=== PATIENT | female | born 1990 | race Caucasian/White ===

== ENCOUNTER 2016-05-28 17:39 | Emergency (ER) | payer BC, OTHER ==
[~2016-05-28] VITALS: Ht 167.6 cm; Wt 83.5 kg
[2016-05-28] MEDS ORDERED: HYDR-3713 (17:53)
[2016-05-28] MEDS ORDERED: LYRI75CA (17:53)
[2016-05-28] MEDS ORDERED: ALPR0.25 (17:53)
[2016-05-28] MEDS ORDERED: [UNRECOGNIZED DRUG - OTHER] PO (17:53)
[2016-05-28] MEDS ORDERED: CYCL10TA (17:53)
[2016-05-28] MEDS ORDERED: ONDA4TAB6 (17:53)
[2016-05-28] MEDS ORDERED: METH4PACK (17:53)
[2016-05-28] MEDS ORDERED: FLUO40CA (17:53)
[2016-05-28] MEDS ORDERED: NS 500 ML IV ONE (19:15)
[2016-05-28] MEDS ORDERED: ISOVUE-370 76% 100ML VIAL (Q9967) As Ordered ONE (19:30)
--- NOTE | 2016-05-28 19:50 | REPUSA ---
CT angiogram of the chest Clinical statement: Chest pain and shortness of breath. Technique: Multiple axial CT images were obtained from the thoracic inlet through the upper abdomen a fter a bolus administration of nonionic intravenous contrast. Coronal and sagittal reconstructions we re also obtained. No comparison is available. Findings: The pulmonary arteries are well-opacified with contrast, with no intraluminal filling defec ts to suggest embolism. The thoracic aorta is unremarkable. Thyroid gland is within normal limits. Th ere is no thoracic lymphadenopathy. There are no pericardial or pleural effusions. The lungs are araceli r. Limited imaging of the upper abdomen is unremarkable. There are no suspicious osseous lesions. Impression: Unremarkable CT examination of the chest. No evidence of pulmonary embolism.
[2016-05-28] MEDS ORDERED: MECLIZINE 25 MG TABLET PO ONE (20:00)
[2016-05-28] MEDS ORDERED: MECL-68 PO (20:03)
[2016-05-28 20:23] VITALS: BP 117/80
== END 2016-05-28 20:26 | disposition home or self-care (01) ==
LOC: M ED 18:53
DX: R55 Syncope and collapse (principal); R42 Dizziness and giddiness; R11.0 Nausea; Z88.0 Allergy status to penicillin; Z88.2 Allergy status to sulfonamides; Z79.899 Other long term (current) drug therapy; Z88.8 Allergy status to other drugs, medicaments and biological substances; R51 Headache; J45.909 Unspecified asthma, uncomplicated; Z87.440 Personal history of urinary (tract) infections; F41.9 Anxiety disorder, unspecified; F32.9 Major depressive disorder, single episode, unspecified
CPT/HCPCS: 71275; 96360; 99282; Q9967

== ENCOUNTER → 2016-05-28 | Outpatient (CLI) | payer BC, OTHER ==
[~2016-05-28] MED LIST: ALPR0.25; CYCL10TA; FLUO40CA; HYDR-3713; LYRI75CA; MECL-68 PO; METH4PACK; ONDA4TAB6; [UNRECOGNIZED DRUG - OTHER] PO
--- NOTE | 2016-05-28 16:24 | REP ---
CT Head without contrast HISTORY: Syncope COMPARISON: 12/17/2014 There is no intraparenchymal hemorrhage, acute infarct, mass or midline shift. The ventricular system is normal in appearance. There is no extra cerebral collection. There is no fracture. The visualized sinuses are clear. IMPRESSION: There is no intracranial lesion. Signed by Brian Vallejo MD 05/28/2016 04:16 P
--- NOTE | 2016-05-29 07:43 | REP ---
Chest x-ray: Two views. History: Syncope . Comparison study: January 18, 2007 . Findings: The lungs are well inflated and free of infiltrate. The pleural angles are sharp. The heart size is normal. Pulmonary vasculature is not increased. No significant bony abnormality is seen. Impression: Negative chest x-ray. Signed by Jhonathan Arana MD 05/28/2016 04:03 P
== END ==
LOC: M RAD 15:50
PROVIDERS: ATTEND Physician Assistant Medical
DX: R55 Syncope and collapse (principal)

== ENCOUNTER → 2016-05-28 | Outpatient (REF) | payer BC, OTHER ==
[2016-05-28 15:31] LABS: BASO % 0.3 % (0.0-1.0); EOS # 0.2 K/mm3 (0.0-0.50); EOS % 2.6 % (0.0-3.0); LARGE UNSTAINED CELL # 0.1 K/mm3 (0.0-0.4); LYMPH # 3.1 K/mm3 (1.5-6.5); LYMPH % 45.9 % (24.0-44.0); MEAN CORPUSCULAR HEMOGLOBIN 30.4 pg (27.0-33.0); MEAN CORPUSCULAR HGB CONC 33.2 g/dl (32.0-36.5); MEAN CORPUSCULAR VOLUME 91.5 fl (80.0-96.0); MONO # 0.2 K/mm3 (0.0-0.8); MONO % 3.7 % (0.0-5.0); NEUTROPHILS # 2.9 K/mm3 (1.8-7.7); NEUTROPHILS % 45.4 % (36.0-66.0); PLATELET COUNT, AUTOMATED 303 k/mm3 (150-450); RED CELL DISTRIBUTION WIDTH 12.6 % (11.5-14.5); WHITE BLOOD COUNT 6.4 K/mm3 (4.0-10.0)
[2016-05-28 15:54] LABS: ALBUMIN 3.6 GM/DL (3.2-5.2); ALBUMIN/GLOBULIN RATIO 1.09 (1.00-1.93); ALKALINE PHOSPHATASE 90 U/L (45-117); ALT/SGPT 27 U/L (12-78); ANION GAP 8 MEQ/L (8-16); AST/SGOT 15 U/L (15-37); BILIRUBIN,TOTAL 0.6 MG/DL (0.2-1.0); BLOOD UREA NITROGEN 9 MG/DL (7-18); CALCIUM LEVEL 8.5 MG/DL (8.5-10.1); CARBON DIOXIDE LEVEL 27 MEQ/L (21-32); CHLORIDE LEVEL 104 MEQ/L (98-107); FREE T4 0.92 NG/DL (0.76-1.46); GLOMERULAR FILTRATION RATE > 60.0 (>60); GLUCOSE, FASTING 82 MG/DL (70-105); POTASSIUM SERUM 3.7 MEQ/L (3.5-5.1); SODIUM LEVEL 139 MEQ/L (136-145); TOTAL PROTEIN 6.9 GM/DL (6.4-8.2)
== END ==
LOC: M SFHCPLAZ 15:10
PROVIDERS: ATTEND Physician Assistant Medical
DX: R55 Syncope and collapse (principal)

== ENCOUNTER → 2016-06-05 | Outpatient (CLI) | payer BC, OTHER ==
--- NOTE | 2016-06-05 17:13 | REP ---
MRA CAROTIDS WITHOUT CONTRAST: HISTORY: Syncope. Unenhanced 2D time of flight MR angiography was performed at the level of the carotid bifurcations. The distal common carotid arteries and origins of the external and internal carotid arteries are normal. The vertebral arteries are equal in size and patent. There are no atherosclerotic lesions. IMPRESSION:Normal MRA carotids. Signed by Brian Vallejo MD 06/05/2016 05:21 P
--- NOTE | 2016-06-05 18:07 | REP ---
MRI BRAIN WITHOUT FOLLOWED BY WITH CONTRAST: COMPARISON: 12/03/2010 A single punctate focus of increased signal intensity on T2 weighted images is present in the subcortical white matter of the left frontal lobe. There is no intraparenchymal hemorrhage, infarct mass or midline shift. The ventricular system is normal in appearance. There is no extracerebral collection. The sinuses are clear. IMPRESSION: There is a single punctate focus of increased signal intensity in the subcortical white matter of the left frontal lobe. This is a nonspecific finding. Signed by Brian Vallejo MD 06/05/2016 06:08 P
== END ==
LOC: M RAD 15:46
PROVIDERS: ATTEND Physician Assistant Medical
DX: R55 Syncope and collapse (principal)
CPT/HCPCS: 70547; 70553; A9576

== ENCOUNTER → 2016-06-30 | Outpatient (REF) | payer OTHER ==
[2016-06-30 15:32] LABS: MEAN CORPUSCULAR HEMOGLOBIN 31.7 pg (27.0-33.0); MEAN CORPUSCULAR HGB CONC 33.9 g/dl (32.0-36.5); MEAN CORPUSCULAR VOLUME 93.6 fl (80.0-96.0); RED CELL DISTRIBUTION WIDTH 12.8 % (11.5-14.5)
[2016-06-30 15:41] LABS: ALBUMIN 3.4 GM/DL (3.2-5.2); ALKALINE PHOSPHATASE 90 U/L (45-117); ALT/SGPT 26 U/L (12-78); ANION GAP 9 MEQ/L (8-16); AST/SGOT 11 U/L (15-37); BILIRUBIN,TOTAL 0.7 MG/DL (0.2-1.0); BLOOD UREA NITROGEN 11 MG/DL (7-18); CALCIUM LEVEL 8.2 MG/DL (8.5-10.1); CARBON DIOXIDE LEVEL 21 MEQ/L (21-32); CHLORIDE LEVEL 112 MEQ/L (98-107); CHOLESTEROL LEVEL 274 MG/DL (<200); CREATININE FOR GFR 1.14 MG/DL (0.55-1.02); FERRITIN 296 NG/ML (8-252); GLOMERULAR FILTRATION RATE > 60.0 (>60); GLUCOSE, FASTING 87 MG/DL (70-105); PERCENT SATURATION 29.7 % (13.2-37.4); POTASSIUM SERUM 3.9 MEQ/L (3.5-5.1); SODIUM LEVEL 142 MEQ/L (136-145); TOTAL IRON BINDING CAPACITY 434 UG/DL (250-450); TOTAL PROTEIN 6.8 GM/DL (6.4-8.2); TRIGLYCERIDES LEVEL 142 MG/DL (<150); VITAMIN B12 LEVEL 326 PG/ML (247-911)
== END ==
LOC: M SFHCLACO 08:28
PROVIDERS: ATTEND Physician Assistant
DX: Z00.00 Encounter for general adult medical examination without abnormal findings (principal); D50.9 Iron deficiency anemia, unspecified; G89.4 Chronic pain syndrome; M79.7 Fibromyalgia; F34.1 Dysthymic disorder

== ENCOUNTER → 2016-10-13 | Outpatient (REF) | payer OTHER ==
[2016-10-13 15:36] LABS: ALBUMIN 3.4 GM/DL (3.2-5.2); ALBUMIN/GLOBULIN RATIO 0.97 (1.00-1.93); ALKALINE PHOSPHATASE 82 U/L (45-117); ALT/SGPT 33 U/L (12-78); ANION GAP 9 MEQ/L (8-16); AST/SGOT 18 U/L (15-37); BILIRUBIN,TOTAL 0.6 MG/DL (0.2-1.0); BLOOD UREA NITROGEN 14 MG/DL (7-18); CARBON DIOXIDE LEVEL 21 MEQ/L (21-32); CHLORIDE LEVEL 112 MEQ/L (98-107); CHOLESTEROL LEVEL 281 MG/DL (<200); CREATININE FOR GFR 1.05 MG/DL (0.55-1.02); GLOMERULAR FILTRATION RATE > 60.0 (>60); GLUCOSE, FASTING 73 MG/DL (70-105); POTASSIUM SERUM 4.2 MEQ/L (3.5-5.1); SODIUM LEVEL 142 MEQ/L (136-145); TOTAL PROTEIN 6.9 GM/DL (6.4-8.2); TRIGLYCERIDES LEVEL 195 MG/DL (<150)
== END ==
LOC: M SFHCLACO 08:09
PROVIDERS: ATTEND Physician Assistant
DX: E78.2 Mixed hyperlipidemia (principal); M79.7 Fibromyalgia; E55.9 Vitamin D deficiency, unspecified

== ENCOUNTER → 2016-12-17 | Outpatient (CLI) | payer OTHER ==
--- NOTE | 2016-12-17 08:37 | REP ---
Abdominal right upper quadrant ultrasound: There is no cholelithiasis, gallbladder wall thickening or pericholecystic fluid. There is no intrahepatic or extrahepatic biliary duct dilatation. The common duct measures 3.0 mm in diameter. Within the liver. There is an echogenic nodule near the gallbladder measuring 16 x 18 x 13 mm, possibly an hemangioma. I would recommend MRI follow-up for confirmation. There was no liver lesion in this location on the prior CT scans of 2011 or 10/13/2012. The visualized portion of the pancreatic head is unremarkable. The body and tail are obscured by bowel gas. There is no right renal calculus, mass, cyst or hydronephrosis. Right kidney is normal size measuring 11.0 cm craniocaudad length. There is no right upper quadrant abdominal ascites. Impression: There is an echogenic hepatic mass adjacent to the gallbladder as described, not present on comparison CT scans. This may be an hemangioma, however, MRI follow-up is recommended for confirmation. The Signed by Karthik Moe MD 12/17/2016 08:28 A
== END ==
LOC: M RAD 07:39
PROVIDERS: ATTEND Physician Assistant
DX: K76.9 Liver disease, unspecified (principal); R10.11 Right upper quadrant pain

== ENCOUNTER → 2017-01-11 | Outpatient (CLI) | payer OTHER ==
[~2017-01-11] MED LIST changes: +PROHANCE 279.3MG/ML 15ML VIAL (A9576) As Ordered ONE
--- NOTE | 2017-01-12 05:50 | REP ---
MRI liver without and with contrast: 01/11/2017. Clinical history: Right upper quadrant pain. Suspected hemangioma of liver based on gallbladder ultrasound 12/17/2016. Also repeat CT abdomen 10/13/2012. Technique: Coronal T2 axial, T2 fat suppressed, T2 in and out-phase images and gradient echo precontrast axial with dynamic scanning after infusion of 14.5 ml of ProHance via IV. Delayed images out to 6 minutes and coronal fat suppressed gradient-echo sequence also provided. Review of previous CTs, no liver lesion with contrast or noncontrast images from 2011 and 2012 respectively. The T2 coronal images and axial T2 and fat suppressed T2 sequences show no discrete mass in the region of the hyperechoic focus on ultrasound. Course of the left portal vein is an unusual anterior course and splitting major segments and the focus is near that portal vein on ultrasound. I suspect may reflect some focal fat fissure near the portal vein as I cannot see a nodule on precontrast T2 images, the in and out of phase images showing only fat in the fissure signal drop on the in and out of phase sequences. On the dynamic scanning, there was no abnormal enhancing mass on the arterial phase images and the attic sequential images from 1 minute through 6 minutes likewise show only the portal vein on the left side in this region and the adjacent fissure. Coronal images confirm only that finding and do not demonstrate a discrete angioma or mass. The gallbladder shows no calcified stone or mass or biliary dilatation or adjacent ascites, focal splenic lesion. Visualized portion of the kidneys shows extrarenal pelves bilaterally. No aortic aneurysm. No periaortic or other retroperitoneal adenopathy. Pancreas unremarkable. No adrenal lesion identified. Impression: 1. I cannot confirm presence of a discrete hepatic lesion with particular attention to the area in question near the familia hepatis seen on ultrasound. I suspect that may be related to the somewhat unusual anatomy of the left portal vein coursing near the fissure and with some adjacent fat making contributing to the echogenic appearance of the area in question. This also could be some local shunting of blood but no mass or hemangioma evident on these images. 2. Extrarenal pelves bilaterally. I do not see significant acute finding. 3. Follow-up ultrasound may be performed in 3-4 months to document stability of that finding or clearing thereof. Signed by Major Mccarthy MD 01/12/2017 08:23 P
== END ==
LOC: M RAD 08:48
PROVIDERS: ATTEND Physician Assistant
DX: D18.03 Hemangioma of intra-abdominal structures (principal); R10.11 Right upper quadrant pain
CPT/HCPCS: 74183; A9576

== ENCOUNTER → 2017-01-14 | Outpatient (REF) | payer OTHER ==
[~2017-01-14] MED LIST changes: -PROHANCE 279.3MG/ML 15ML VIAL (A9576) As Ordered ONE
[2017-01-14 15:08] LABS: ALBUMIN 3.5 GM/DL (3.2-5.2); ALBUMIN/GLOBULIN RATIO 0.97 (1.00-1.93); ALKALINE PHOSPHATASE 101 U/L (45-117); ALT/SGPT 32 U/L (12-78); ANION GAP 7 MEQ/L (8-16); AST/SGOT 15 U/L (7-37); BILIRUBIN,TOTAL 0.6 MG/DL (0.2-1.0); BLOOD UREA NITROGEN 8 MG/DL (7-18); CALCIUM LEVEL 8.4 MG/DL (8.5-10.1); CARBON DIOXIDE LEVEL 23 MEQ/L (21-32); CHLORIDE LEVEL 111 MEQ/L (98-107); CHOLESTEROL LEVEL 253 MG/DL (<200); CREATININE FOR GFR 0.97 MG/DL (0.55-1.02); GLOMERULAR FILTRATION RATE > 60.0 (>60); GLUCOSE, FASTING 76 MG/DL (70-105); POTASSIUM SERUM 4.2 MEQ/L (3.5-5.1); SODIUM LEVEL 141 MEQ/L (136-145); TOTAL PROTEIN 7.1 GM/DL (6.4-8.2); TRIGLYCERIDES LEVEL 167 MG/DL (<150)
== END ==
LOC: M SFHCLACO 10:09
PROVIDERS: ATTEND Physician Assistant
DX: E78.2 Mixed hyperlipidemia (principal); M79.7 Fibromyalgia; E55.9 Vitamin D deficiency, unspecified

== ENCOUNTER 2017-02-04 10:54 | Emergency (ER) | payer OTHER ==
[2017-02-04] MEDS: ONDANSETRON 4 MG ORAL DISINTEGRATING TAB (S0181) PO (11:30)
[2017-02-04] MEDS: ACETAMINOPHEN 325 MG TAB PO (11:30)
== END 2017-02-04 12:13 | disposition home or self-care (01) ==
LOC: M ED 10:54
DX: J20.9 Acute bronchitis, unspecified (principal); K21.9 Gastro-esophageal reflux disease without esophagitis; J45.909 Unspecified asthma, uncomplicated; M79.7 Fibromyalgia; Z79.899 Other long term (current) drug therapy; Z88.2 Allergy status to sulfonamides; Z88.1 Allergy status to other antibiotic agents
CPT/HCPCS: 71020

== ENCOUNTER → 2017-06-29 | Outpatient (REF) | payer OTHER ==
[2017-06-29 15:16] LABS: ALBUMIN 3.4 GM/DL (3.2-5.2); ALKALINE PHOSPHATASE 77 U/L (45-117); ALT/SGPT 32 U/L (12-78); ANION GAP 7 MEQ/L (8-16); AST/SGOT 19 U/L (7-37); BILIRUBIN,TOTAL 0.5 MG/DL (0.2-1.0); BLOOD UREA NITROGEN 13 MG/DL (7-18); CALCIUM LEVEL 8.6 MG/DL (8.5-10.1); CARBON DIOXIDE LEVEL 22 MEQ/L (21-32); CHLORIDE LEVEL 113 MEQ/L (98-107); CHOLESTEROL LEVEL 275 MG/DL (<200); CHOLESTEROL RISK RATIO 5.092 (<5); CREATININE FOR GFR 1.01 MG/DL (0.55-1.30); GLOMERULAR FILTRATION RATE > 60.0 (>60); GLUCOSE, FASTING 78 MG/DL (70-100); HDL CHOLESTEROL 54 MG/DL (>40); LDL CHOLESTEROL 180.2 MG/DL (<100); NON-HDL-C 221 MG/DL; SODIUM LEVEL 142 MEQ/L (136-145); TOTAL PROTEIN 6.8 GM/DL (6.4-8.2); TRIGLYCERIDES LEVEL 204 MG/DL (<150)
[2017-06-29 15:19] LABS: TOTAL 25(OH) VITAMIN D 17.5 NG/ML (30.0-100.0)
== END ==
LOC: M SFHCLACO 09:55
DX: E78.2 Mixed hyperlipidemia (principal); M79.7 Fibromyalgia; E55.9 Vitamin D deficiency, unspecified

== ENCOUNTER 2018-11-26 10:46 | Emergency (ER) | payer OTHER ==
[~2018-11-26] VITALS: Ht 167.6 cm; Wt 92.2 kg
[~2018-11-26 10:46] MED LIST changes: +AMOX500C PO; +AZIT-12; +BENZ-18; +PRED10TA2; +TYLE325T5 PO; +ZOFR4TAB14 PO
[2018-11-26] MEDS ORDERED: ATOR1TAB19 (10:56)
[2018-11-26] MEDS ORDERED: ONDANSETRON 4 MG ORAL DISINTEGRATING TAB (Q0162 PER 1MG) PO ONE (12:00)
[2018-11-26] MEDS ORDERED: KETOROLAC 60 MG/2 ML VIAL (J1885) IM ONE (12:00)
[2018-11-26 12:02] LABS: HEMATOCRIT 41.4 % (36.0-47.0); HEMOGLOBIN 13.4 g/dl (12.0-15.5); MEAN CORPUSCULAR HEMOGLOBIN 30.6 pg (27.0-33.0); MEAN CORPUSCULAR HGB CONC 32.4 g/dl (32.0-36.5); MEAN CORPUSCULAR VOLUME 94.5 fl (80.0-96.0); PLATELET COUNT, AUTOMATED 341 10^3/uL (150-450); RED BLOOD COUNT 4.38 10^6/uL (4.00-5.40); WHITE BLOOD COUNT 7.9 10^3/uL (4.0-10.0)
--- NOTE | 2018-11-26 13:01 | REP ---
CT abdomen and pelvis without IV or oral contrast: Renal stone protocol. History: Flank pain, hematuria. Comparison CT study is from October 13, 2012. CT findings: Preliminary digital supervisor parking lot radiographs show clothing artifact projecting in the left mid abdomen. There are small bowel air filled loops in the central abdomen. The lung bases are clear on axial CT images. No pleural effusion or upper abdominal ascites is seen. The liver and the spleen are normal in size, homogeneous in texture. No adrenal lesion is seen on either side. No abnormalities noted in the gallbladder or the pancreas. The kidneys are morphologically intact. No hydronephrosis is seen. No evidence of intrarenal nephrolithiasis on either side. No bladder calculus is seen. No ureteral stone is observed. No uterine or ovarian abnormality is appreciated. A normal appendix is seen in the right lower quadrant partially filled with air. Small and large intestinal bowel loops are unremarkable. Impression: Unremarkable CT study abdomen and pelvis. No urinary tract calculus or hydronephrosis seen. Normal appendix. Electronically Signed by Jhonathan Arana MD 11/26/2018 01:59 P
[2018-11-26 13:36] VITALS: BP 116/71
[2018-11-26] MEDS ORDERED: CIPR-249 PO (14:07)
== END 2018-11-26 14:23 | disposition home or self-care (01) ==
LOC: M ED 10:46
DX: N30.90 Cystitis, unspecified without hematuria (principal); N93.8 Other specified abnormal uterine and vaginal bleeding; E78.00 Pure hypercholesterolemia, unspecified; Z88.2 Allergy status to sulfonamides; Z88.8 Allergy status to other drugs, medicaments and biological substances
CPT/HCPCS: 36415; 74176; 80047; 81001; 85027; 96372; 99284; J1885; Q0162

== ENCOUNTER → 2019-10-11 | Outpatient (CLI) | payer OTHER ==
[~2019-10-11] MED LIST changes: +ATOR1TAB19; +CIPR-249 PO; +CYCL-707; -CYCL10TA; -MECL-68 PO; +MECL1TAB31 PO
--- NOTE | 2019-11-06 13:18 | REP ---
RIGHT HIP SERIES CLINICAL: Right hip pain. TECHNIQUE: Neutral and frog lateral views of the right hip. FINDINGS: Osseous structures, joint spaces, and surrounding soft tissues are normal. No acute fracture or dislocation. No arthritic or obvious congenital abnormalities. Surrounding soft tissues are unremarkable. IMPRESSION: Normal right hip radiographs. MTDD
== END ==
LOC: M ADAMS 14:25
PROVIDERS: ATTEND Family Medicine
DX: M25.551 Pain in right hip (principal)

== ENCOUNTER → 2020-03-26 | Outpatient (REF) | payer OTHER | LOC: M SFHCADAM 16:07 | PROVIDERS: ATTEND Physician Assistant | DX: J02.9 Acute pharyngitis, unspecified (principal) ==

== ENCOUNTER → 2021-05-28 | Outpatient (REF) | payer OTHER ==
[2021-05-28 13:22] LABS: ALBUMIN 3.9 GM/DL (3.2-5.2); ALT/SGPT 30 U/L (12-78); BILIRUBIN,TOTAL 0.9 MG/DL (0.2-1.0); BLOOD UREA NITROGEN 11 MG/DL (7-18); CALCIUM LEVEL 9.8 MG/DL (8.5-10.1); CARBON DIOXIDE LEVEL 23 MEQ/L (21-32); CHLORIDE LEVEL 113 MEQ/L (98-107); CHOLESTEROL LEVEL 307 MG/DL (<200); CHOLESTEROL RISK RATIO 5.385 (<5); CREATININE FOR GFR 1.04 MG/DL (0.55-1.30); GLOMERULAR FILTRATION RATE > 60.0 (>60); GLUCOSE, FASTING 84 MG/DL (70-100); HDL CHOLESTEROL 57 MG/DL (>40); LDL CHOLESTEROL 217 MG/DL (<100); NON-HDL-C 250 MG/DL; SODIUM LEVEL 143 MEQ/L (136-145); TOTAL PROTEIN 7.3 GM/DL (6.4-8.2); TRIGLYCERIDES LEVEL 164 MG/DL (<150)
== END ==
LOC: M SFHCADAM 08:22
PROVIDERS: ATTEND Physician Assistant
DX: E78.2 Mixed hyperlipidemia (principal); M79.7 Fibromyalgia

== ENCOUNTER → 2021-07-23 | Outpatient (CLI) | payer OTHER | LOC: M WHC 08:49 | PROVIDERS: ATTEND Physician Assistant | DX: R10.11 Right upper quadrant pain (principal) ==

== ENCOUNTER → 2021-09-11 | Outpatient (REF) | payer OTHER | LOC: M SFHCADAM 12:46 | PROVIDERS: ATTEND Physician Assistant | DX: J02.9 Acute pharyngitis, unspecified (principal) ==

== ENCOUNTER → 2021-10-20 | Outpatient (REF) | payer OTHER ==
[2021-10-20 18:09] LABS: BASO # 0.1 10^3/uL (0.0-0.2); BASO % 0.7 % (0.0-1.0); EOS # 0.2 10^3/uL (0.0-0.5); EOS % 2.6 % (0.0-3.0); HEMATOCRIT 41.6 % (36.0-47.0); HEMOGLOBIN 13.6 g/dl (12.0-15.5); LYMPH # 2.8 10^3/uL (1.5-5.0); LYMPH % 40.5 % (24.0-44.0); MEAN CORPUSCULAR HEMOGLOBIN 30.8 pg (27.0-33.0); MEAN CORPUSCULAR HGB CONC 32.7 g/dl (32.0-36.5); MEAN CORPUSCULAR VOLUME 94.3 fl (80.0-96.0); MONO # 0.5 10^3/uL (0.0-0.8); MONO % 6.5 % (2.0-8.0); NEUTROPHILS # 3.4 10^3/uL (1.5-8.5); NEUTROPHILS % 49.3 % (36.0-66.0); PLATELET COUNT, AUTOMATED 362 10^3/uL (150-450); RED BLOOD COUNT 4.41 10^6/uL (4.00-5.40)
[2021-10-20 19:15] LABS: C REACTIVE PROTEIN QUANTITATIV 0.37 MG/DL (0.00-0.30); COMPLEMENT C3 157 MG/DL (90-180); COMPLEMENT C4 36 MG/DL (10-40); RHEUMATOID FACTOR QUANT < 10.0 IU/ML (<15.0)
[2021-10-20 19:50] LABS: TOTAL 25(OH) VITAMIN D 62.1 NG/ML (30.0-100.0); VITAMIN B12 LEVEL 250 PG/ML
[2021-10-20 20:56] LABS: ERYTHROCYTE SEDIMENTATION RATE 7 mm/hr (0-20)
== END ==
LOC: M SFHCADAM 15:35
PROVIDERS: ATTEND Physician Assistant Medical
DX: G89.4 Chronic pain syndrome (principal); M79.7 Fibromyalgia; K21.9 Gastro-esophageal reflux disease without esophagitis; M54.2 Cervicalgia; J45.20 Mild intermittent asthma, uncomplicated; D50.9 Iron deficiency anemia, unspecified; F32.1 Major depressive disorder, single episode, moderate; F41.1 Generalized anxiety disorder; E78.2 Mixed hyperlipidemia; M25.561 Pain in right knee; M25.562 Pain in left knee

== ENCOUNTER → 2021-10-20 | Outpatient (CLI) | payer OTHER | LOC: M ADAMS 15:38 | PROVIDERS: ATTEND Physician Assistant Medical | DX: M54.2 Cervicalgia (principal); M25.562 Pain in left knee; M25.561 Pain in right knee ==

== ENCOUNTER → 2023-04-22 | Outpatient (CLI) | payer OTHER ==
[~2023-04-22] MED LIST changes: +MECL-209 PO; -MECL1TAB31 PO
== END ==
LOC: M SOG 14:03
PROVIDERS: ATTEND Physician Assistant
DX: M25.562 Pain in left knee (principal)

== ENCOUNTER → 2023-11-04 | Outpatient (CLI) | payer OTHER ==
[~2023-11-04] MED LIST changes: +ONDA-282; -ONDA4TAB6
== END ==
LOC: M PLAIMG 10:05
PROVIDERS: ATTEND Physician Assistant
DX: M54.89 Other dorsalgia (principal); K80.20 Calculus of gallbladder without cholecystitis without obstruction; N20.1 Calculus of ureter

== ENCOUNTER → 2024-03-08 | Outpatient (CLI) | payer OTHER ==
[2024-03-08 16:15] LABS: Trichomonas vaginalis (AMP) NOT DETECTED (NEGATIVE)
[2024-03-08 16:39] LABS: GC DNA AMPLIFICATION NEGATIVE (NEGATIVE)
== END ==
LOC: M PLALAB 14:06
PROVIDERS: ATTEND Nurse Practitioner Family
DX: Z01.411 Encounter for gynecological examination (general) (routine) with abnormal findings (principal); N72 Inflammatory disease of cervix uteri; R87.610 Atypical squamous cells of undetermined significance on cytologic smear of cervix (ASC-US)
CPT/HCPCS: 36415; 87070; 87624; 87661; 87810; 87850; G0123

== ENCOUNTER → 2024-03-23 | Outpatient (CLI) | payer OTHER | LOC: M RAD 14:25 | PROVIDERS: ATTEND Nurse Practitioner Family | DX: N94.6 Dysmenorrhea, unspecified (principal) ==

== ENCOUNTER → 2024-06-14 | Outpatient (REF) | payer OTHER | LOC: M SFHCWAGY 10:42 | PROVIDERS: ATTEND Nurse Practitioner Family | DX: Z12.4 Encounter for screening for malignant neoplasm of cervix (principal); R87.615 Unsatisfactory cytologic smear of cervix ==

== ENCOUNTER 2025-02-05 11:18 | Observation (INO) | payer OTHER ==
[~2025-02-05] VITALS: Ht 167.6 cm; Wt 84.5 kg
[2025-02-05] VITALS (7 sets, daily range): BP systolic 99–116; BP diastolic 59–66; TEMP 96.9–97.9; O2SAT 94–96
[~2025-02-05 11:18] MED LIST changes: +ATOG60TA PO; +BUPR150T12 PO; +DAYSTAB PO; +DIAZ5TAB PO; +EPIN0.3I11; +ESOM40CA35 PO; +PRAZ2CAP PO; +SERT50TA29 PO; +ZOLP5TAB9 PO
[2025-02-05] MEDS ORDERED: HYDROmorphone HCL 2 MG/ML 1 ML VIAL As Ordered ONE (11:36)
[2025-02-05] MEDS ORDERED: MIDAZOLAM INJ 2 MG/2 ML VIAL As Ordered ONE (11:36)
[2025-02-05] MEDS ORDERED: ROCURONIUM BROMIDE 50MG/5ML VIAL As Ordered ONE (11:38)
[2025-02-05] MEDS ORDERED: LIDOCAINE 2% 100 MG/5 ML SDV (FOR ANES.) As Ordered ONE (11:38)
[2025-02-05] MEDS ORDERED: SUGAMMADEX SODIUM 500 MG/5 ML VIAL As Ordered ONE (11:38)
[2025-02-05] MEDS ORDERED: dexmedeTOMIDine (4 MCG/ML) 200 MCG/50 ML BTL As Ordered ONE (11:40)
[2025-02-05] MEDS ORDERED: dexAMETHasone 4 MG/ML 1 ML VIAL As Ordered ONE (11:41)
[2025-02-05] MEDS ORDERED: ONDANSETRON 4MG/2ML VIAL As Ordered ONE (11:41)
[2025-02-05] MEDS ORDERED: KETOROLAC 30 MG/ML 1 ML VIAL As Ordered ONE (11:41)
[2025-02-05] MEDS ORDERED: ACETAMINOPHEN 1000MG/100ML IV BAG As Ordered ONE (11:44)
[2025-02-05 11:55] LABS: PLATELET COUNT, AUTOMATED 351 10^3/uL (150-450)
[2025-02-05] MEDS: LR 1,000 ML IV SCH ×2 (12:10→18:42)
[2025-02-05] MEDS: SCOPOLAMINE 1MG TRANSDERMAL PATCH TOP ONE (12:59)
[2025-02-05] MEDS: ceFAZolin SOD 2 GM IV ONCE IV ONE (13:22)
[2025-02-05] MEDS: METHYLENE BLUE 0.5% (5 MG/ML) 10 ML AMP As Ordered ONE (14:31)
[2025-02-05] MEDS ORDERED: MORPHINE 2 MG/ML 1 ML VIAL IV PRN (15:05)
[2025-02-05] MEDS ORDERED: IBUP80TA PO (15:14)
[2025-02-05] MEDS ORDERED: ONDA-282 PO (15:15)
[2025-02-05] MEDS ORDERED: COLA100C5 PO (15:15)
[2025-02-05] MEDS ORDERED: PERC5TAB12 PO (15:16)
[2025-02-05] MEDS: HYDROMORPHONE HCL 0.5 MG/0.5 ML SYRINGE IV PRN (15:20)
[2025-02-05] MEDS: ONDANSETRON 4MG/2ML VIAL IV PRN (15:20)
[2025-02-05] MEDS ORDERED: PERCOCET 5MG/325MG TAB PO PRN (16:55)
[2025-02-05] MEDS ORDERED: ONDANSETRON 4MG/2ML VIAL IV PRN (16:55)
[2025-02-05] MEDS ORDERED: MORPHINE 4 MG/ML 1 ML VIAL IV PRN (16:55)
[2025-02-05] MEDS ORDERED: KETOROLAC 30 MG/ML 1 ML VIAL IV SCH (18:00)
[2025-02-05] MEDS ORDERED: diphenhydrAMINE 50 MG/ML VIAL IV PRN (19:15)
[2025-02-05] MEDS: DOCUSATE SODIUM 100 MG CAPSULE PO SCH (20:17)
[2025-02-05] MEDS: PERCOCET 5MG/325MG TAB PO PRN (20:18)
[2025-02-05] MEDS: KETOROLAC 30 MG/ML 1 ML VIAL IV SCH (21:09)
[2025-02-06] VITALS: BP 103/57; TEMP 97.9; O2SAT 94
[2025-02-06 04:00] VITALS: BP 101/53; TEMP 96.9; O2SAT 94
[2025-02-06 08:20] VITALS: BP 105/58; TEMP 97.1; O2SAT 95
[2025-02-06] MEDS ORDERED: IBUPROFEN 800 MG TAB PO SCH (23:00)
== END 2025-02-06 13:10 | disposition home or self-care (01) ==
LOC: M SDC 11:18 → M RR INP 17:01 → M PED 18:05
PROVIDERS: ADMIT Obstetrics & Gynecology; ATTEND Obstetrics & Gynecology
DX: R10.20 Pelvic and perineal pain unspecified side (principal); N80.03 Adenomyosis of the uterus
CPT/HCPCS: 36415; 58571; 81025; 85027; 86850; 86900; 86901; 88307; 96361; 96374; 96376; J0131; J0665; J0688; J1100; J1171; J1885; J2250; J2405; J2765; J3010; J3490; S2900